=== PATIENT | female | born 1945 | race Caucasian/White ===

== ENCOUNTER 2021-06-16 04:25 | Observation (INO) ==
[2021-06-08 15:39] LABS: Bilirubin,Urine Negative (Negative); Blood, Urine Negative (Negative); Glucose,Urine (UA) Negative (Negative); Ketones,Urine Negative (Negative); Nitrite,Urine Negative (Negative); Protein,Urine Negative; Squamous Epithelial Cell,Urine Occasional /HPF (0-10); Urine Appearance CLEAR (Clear); Urine Color Straw (Yellow); Urine Specific Gravity 1.008 (1.001-1.035); Urine Urobilinogen < 2.0 EU/DL (0.2-1.0)
[2021-06-08 15:40] LABS: Basophils % 0.3 % (0.0-0.8); Eosinophils # 0.2 10*3/uL (0.0-0.87); Eosinophils % 6.1 % (0.00-10.9); Hematocrit 33.8 VOL% (35.7-47.0); Hemoglobin 11.4 GM/DL (12.0-16.0); Immature Granulocytes % 0.3 %; Immature Granulocytes Absolute 0.01 #; Lymphocytes # 0.8 10*3/uL (1.4-4.0); Lymphocytes % 19.3 % (21.3-54.2); Mean Corpuscular HGB Conc 33.7 GM/DL (32-36); Mean Corpuscular Volume 83.3 FL (87-102); Mean Platelet Volume 10.5 FL (9.6-12.0); Monocytes % 5.1 % (1.7-12.7); Neutrophils % 68.9 % (38.7-73.9); Platelet Count 132 T/CUMM (130-400); Red Blood Count 4.06 MC/CUMM (3.8-5.5); Red Cell Distribution Width 14.6 % (9.3-17.3); White Blood Count 3.9 T/CUMM (4-12)
[2021-06-08 16:02] LABS: Calcium 9.1 MG/DL (8.5-10.1); Potassium 3.9 MMOL/L (3.5-5.1)
[2021-06-08 16:05] LABS: PT Patient Result 11.4 SECS (10.5-12.0); Partial Thromboplastin Time 27.7 SECS (23.9-33.8)
[2021-06-16] MEDS ORDERED: LEVOFLOXACIN INJ 750 MG/150 ML PREMIX IV ONE (06:00)
[2021-06-16] MEDS ORDERED: CLINDAMYCIN INJ 900 MG/50 ML PREMIX IV ONE (06:00)
[2021-06-16] MEDS ORDERED: FAMOTIDINE 20 MG TABLET PO ONE (06:38)
[2021-06-16] MEDS ORDERED: ACETAMINOPHEN 500 MG TABLET PO ONE (06:38)
[2021-06-16] MEDS ORDERED: ROPIVACAINE 0.5% 30 ML VIAL ONE (06:41)
[2021-06-16] MEDS ORDERED: DEXAMETHASONE 4 MG/1 ML VIAL ONE (06:41)
[2021-06-16] MEDS ORDERED: ESTRADIOL 0.01% VAG CREAM 42.5 GM TUBE VAG ONE (06:45)
[2021-06-16] MEDS ORDERED: INDIGO CARMINE 5 ML AMP ONE (06:45)
[2021-06-16] MEDS ORDERED: LIDOCAINE 1%/EPI INJ 20 ML VIAL ONE (06:45)
[2021-06-16] MEDS ORDERED: LIDOCAINE 2% 5 ML VIAL ONE (06:47)
[2021-06-16] MEDS ORDERED: ROCURONIUM 50 MG/5 ML VIAL IV ONE (06:47)
[2021-06-16] MEDS ORDERED: ETOMIDATE 40 MG/20 ML VIAL IV ONE (06:47)
[2021-06-16] MEDS ORDERED: SEVOFLURANE 1 UNIT/15 MINUTE INH ONE ×2 (06:47→10:39)
[2021-06-16] MEDS ORDERED: fentaNYL 100 MCG/2 ML VIAL ONE (06:48)
[2021-06-16] MEDS ORDERED: LACTATED RINGERS 1,000 ML IV SCH (07:00)
[2021-06-16] MEDS ORDERED: propofoL 200 MG/20 ML VIAL IV ONE (07:58)
[2021-06-16] MEDS ORDERED: PHENYLEPHRINE 1 MG/10 ML SYRINGE IV ONE (07:59)
[2021-06-16] MEDS ORDERED: ONDANSETRON 4 MG/2 ML VIAL ONE (07:59)
[2021-06-16] MEDS ORDERED: NEOSTIGMINE 10 MG/10 ML VIAL ONE (08:03)
[2021-06-16] MEDS ORDERED: GLYCOPYRROLATE 0.4 MG/2 ML VIAL ONE (08:03)
[2021-06-16] MEDS ORDERED: TISSUE ADHESIVE 1 EACH APPLICATOR TOP ONE (08:13)
[2021-06-16] MEDS ORDERED: ePHEDrine 50 MG/ML VIAL ONE (08:14)
[2021-06-16] MEDS ORDERED: LACTATED RINGERS 1,000 ML IV ONE (08:30)
[2021-06-16] MEDS ORDERED: MAGNESIUM HYDROXIDE SUSP 30 ML UDCUP PO PRN (09:01)
[2021-06-16] MEDS ORDERED: IBUPROFEN 800 MG TABLET PO PRN (09:01)
[2021-06-16] MEDS ORDERED: BISACODYL 10 MG SUPP RECTAL PRN (09:01)
[2021-06-16] MEDS ORDERED: ACETAMINOPHEN 325 MG TABLET PO PRN (09:01)
[2021-06-16] MEDS ORDERED: DOCUSATE SODIUM 100 MG CAPSULE PO PRN (09:01)
[2021-06-16] MEDS ORDERED: BENZOCAINE/MENTHOL LOZENGE 18/BOX PO PRN (09:01)
[2021-06-16] MEDS ORDERED: ONDANSETRON 4 MG/2 ML VIAL IV PRN ×2 (09:01→09:09)
[2021-06-16 09:09] LABS: Bacteria,Urine Occasional /HPF (Few); Bilirubin,Urine Negative (Negative); Blood, Urine Negative (Negative); Glucose,Urine (UA) Negative (Negative); Ketones,Urine Negative (Negative); Mucus,Urine Occasional /LPF (Occasional); Nitrite,Urine Negative (Negative); Protein,Urine Negative; RBC,Urine 3 /HPF (0-4); Squamous Epithelial Cell,Urine Occasional /HPF (0-10); Urine Appearance CLEAR (Clear); Urine Color Yellow (Yellow); Urine Specific Gravity 1.011 (1.001-1.035); Urine Urobilinogen < 2.0 EU/DL (0.2-1.0)
[2021-06-16] MEDS ORDERED: diphenhydrAMINE 50 MG/1 ML VIAL IV PRN (09:09)
[2021-06-16] MEDS ORDERED: PROMETHAZINE INJ 25 MG in SODIUM CHLORIDE 0.9% 50 ML IV PRN (09:09)
[2021-06-16] MEDS ORDERED: MEPERIDINE 25 MG/1 ML VIAL IV PRN (09:09)
[2021-06-16] MEDS ORDERED: HYDROmorphone 2 MG/1 ML VIAL IV PRN (09:09)
[2021-06-16] MEDS: LACTATED RINGERS 1,000 ML IV SCH ×2 (09:10→16:36)
[2021-06-16] MEDS ORDERED: FUROSEMIDE 20 MG/2 ML VIAL ONE (10:39)
[2021-06-16] MEDS ORDERED: MEPERIDINE 50 MG/1 ML VIAL ONE (11:05)
[2021-06-16] MEDS ORDERED: MEPERIDINE 50 MG/1 ML VIAL IV PRN (11:14)
[2021-06-16] MEDS: CLINDAMYCIN INJ 900 MG/50 ML PREMIX IV SCH ×2 (15:32→23:48)
[2021-06-16] MEDS: oxyCODONE/ACETAMINOPHEN 5-325 MG TABLET PO PRN (15:34)
[2021-06-17] MEDS: LACTATED RINGERS 1,000 ML IV SCH ×2 (00:53→10:49)
[2021-06-17] MEDS: oxyCODONE/ACETAMINOPHEN 5-325 MG TABLET PO PRN (02:12)
[2021-06-17 06:32] LABS: Basophils % 0.2 % (0.0-0.8); Eosinophils % 0.4 % (0.00-10.9); Hematocrit 27.8 VOL% (35.7-47.0); Immature Granulocytes % 0.5 %; Immature Granulocytes Absolute 0.03 #; Lymphocytes # 0.7 10*3/uL (1.4-4.0); Lymphocytes % 12.4 % (21.3-54.2); Mean Corpuscular HGB Conc 32.4 GM/DL (32-36); Mean Corpuscular Volume 85.5 FL (87-102); Monocytes % 9.1 % (1.7-12.7); Neutrophils % 77.4 % (38.7-73.9); Platelet Count 123 T/CUMM (130-400); Red Blood Count 3.25 MC/CUMM (3.8-5.5); Red Cell Distribution Width 14.4 % (9.3-17.3); White Blood Count 5.5 T/CUMM (4-12)
[2021-06-17 06:56] LABS: Hypochromasia 1+; Microcytosis 1+; Platelet Estimate Normal
[2021-06-17 11:33] VITALS: BP 118/43
== END 2021-06-17 12:30 | disposition home or self-care (01) ==
LOC: N.SDSINP 04:25 → N.OB 04:25 → N.OR 04:25 → N.SDSINP 04:27 → N.OB 09:35
PROVIDERS: ADMIT Specialist; ATTEND Specialist